=== PATIENT | female | born 1995 | race African-American/Black ===

== ENCOUNTER 2017-01-06 17:07 | Emergency (ER) | payer OTHER ==
[~2017-01-06] VITALS: Ht 177.8 cm; Wt 49.9 kg
[~2017-01-06 17:07] MED LIST: TRIA15CR2 TP
[2017-01-06 17:20] VITALS: BP 117/71
[2017-01-06] MEDS ORDERED: ONDA4TAB10 SL (18:21)
--- NOTE | 2017-01-06 18:21 | PHYS DOC ---
Past History Past Medical History: No Pertinent History Past Surgical History: No Surgical History Smoking: Non-smoker Alcohol Use: None Drug Use: None Adult General Chief Complaint Chief Complaint: NAUSEA/VOMITING/DIARRHEA HPI HPI 21-year-old female with no significant past medical history now complaining of occasional body aches and mild intermittent nausea. Patient states her last period was at the beginning of the month and she is not sure if she might be because she's been sexually active. No active vomiting. No fevers chills sweats or shaking chills no stiff neck no cough specifically no productive cough. Patient has no chest or abdominal pain no pelvic pain or vaginal discharge. She has normal bowel and bladder habits and is tolerating by mouth fluids without difficulty. Other than mild intermittent nausea patient does not have any specific complaints.Vague presentation with nonspecific complaints, in combination with her and her significant other's giggling when asked about the possibility of seemed to imply that she was here for test. Review of Systems Review of Systems Constitutional: Denies fever or chills [] Eyes: Denies change in visual acuity, redness, or eye pain [] HENT: Denies nasal congestion or sore throat [] Respiratory: Denies cough or shortness of breath [] Cardiovascular: No additional information not addressed in HPI [] GI: Denies abdominal pain, nausea, vomiting, bloody stools or diarrhea [] : Denies dysuria or hematuria [] Musculoskeletal: Denies back pain or joint pain [] Integument: Denies rash or skin lesions [] Neurologic: Denies headache, focal weakness or sensory changes [] Endocrine: Denies polyuria or polydipsia [] Allergies Allergies Allergies Coded Allergies Type Severity Reaction Last Updated Verified No Known Drug Allergies 01/06/17 No Physical Exam Physical Exam Completely well-appearing patient no acute distress perfectly groomed walking around the room chatting with her significant other. Patient appears to be completely comfortable in a symptomatic Constitutional: Well developed, well nourished, no acute distress, non-toxic appearance. [] HENT: Normocephalic, atraumatic, bilateral external ears normal, oropharynx moist, no oral exudates, nose normal. [] Eyes: PERRLA, EOMI, conjunctiva normal, no discharge. [] Neck: Normal range of motion, no tenderness, supple, no stridor. [] Cardiovascular:Heart rate regular rhythm, no murmur [] Lungs & Thorax: Bilateral breath sounds clear to auscultation [] Abdomen: Bowel sounds normal, soft, no tenderness, no masses, no pulsatile masses. [] Skin: Warm, dry, no erythema, no rash. [] Back: No tenderness, no CVA tenderness. [] Extremities: No tenderness, no cyanosis, no clubbing, ROM intact, no edema. [] Neurologic: Alert and oriented X 3, normal motor function, normal sensory function, no focal deficits noted. [] Psychologic: Affect normal, judgement normal, mood normal. [] Current Patient Data Vital Signs Vital Signs Date Time Temp Pulse Resp B/P (MAP) Pulse Ox O2 Delivery O2 Flow Rate FiO2 01/06/17 17:20 98.5 89 18 100 Room Air EKG EKG [] Radiology/Procedures Radiology/Procedures [] Course & Med Decision Making Course & Med Decision Making Pertinent Labs and Imaging studies reviewed. (See chart for details) Unclear if patient has a very mild viral syndrome or if she is here for a test. Suspect the latter. Discussed with patient if she is interested to know if she is she should get an [id number] urine test. Discussed with patient she is not she might have a very mild viral syndrome however she is perfectly well-appearing with a normal exam. Offered her a prescription for some Zofran for use as needed however she has no active nausea or vomiting at this time. No further workup or treatment indicated. Patient agrees with outpatient follow-up and strict return precautions given [] Dragon Disclaimer Dragon Disclaimer This chart was dictated in whole or in part using Voice Recognition software in a busy, high-work load, and often noisy Emergency Department environment. It may contain unintended and wholly unrecognized errors or omissions. Departure Departure: Impression: Primary Impression: Nausea Additional Impression: Myalgia Disposition: 01 HOME, SELF-CARE Condition: GOOD Referrals: RONY WELCH (PCP) Patient Instructions: Nausea, Adult Additional Instructions: It is not clear what the cause of your mild intermittent nausea is. He may be or you could be evolving a very mild viral syndrome. Use Zofran under your tongue every 4-6 hours if needed for nausea and vomiting. This medication is for symptomatic relief only and is not necessary at all if you're not having problematic nausea requiring treatment. Drink plenty of fluids and follow-up with your doctor tomorrow. If you're interested to know if he might be procure an [id number] urine test to find out. Return immediately for new severe or worsening symptoms. Scripts Ondansetron (ZOFRAN ODT) 4 Mg Tab.rapdis 4 MG SL Q4-6HRS Y for NAUSEA/VOMITING, #16 TAB Prov: FORREST NIEVES MD 01/06/17 Problem Qualifiers FORREST NIEVES MD Jan 06, 2017 18:21
== END 2017-01-06 18:40 | disposition home or self-care (01) ==
LOC: ER 17:07
DX: M79.1 Myalgia (principal); R11.0 Nausea
CPT/HCPCS: 99283